=== PATIENT | male | born 1950 ===

== ENCOUNTER 2022-11-13 10:19 | Day surgery (SDC) | payer MEDICARE ==
[2022-11-12 13:34] VITALS: BMI 27.9
[2022-11-13] MEDS ORDERED: Vancomycin 1 GM VIAL ONE (10:35)
[2022-11-13] MEDS ORDERED: Thrombin 5000 UNITS/5 ML VIAL ONE (10:35)
[2022-11-13] MEDS ORDERED: CEFAZOLIN 2 GM VIAL ONE ×2 (11:22→11:58)
[2022-11-13] MEDS ORDERED: Sodium Chloride 0.9% 0 ML ONE (11:22)
[2022-11-13] MEDS ORDERED: Sodium Chloride 0.9% 100 ML ONE (11:58)
[2022-11-13] MEDS ORDERED: fentaNYL PF 100 MCG/2 ML SYRINGE ONE (12:31)
[2022-11-13] MEDS ORDERED: fentaNYL 50 mcg/mL 1 mL Vial ONE ×2 (12:31→16:40)
[2022-11-13] MEDS ORDERED: Ketamine 50 MG/ML (10ML VIAL) ONE (12:31)
[2022-11-13] MEDS ORDERED: Vasopressin 20 UNITS/ML VIAL ONE (12:32)
[2022-11-13] MEDS ORDERED: Dexamethasone 20 MG/5 ML VIAL ONE (12:44)
[2022-11-13] MEDS ORDERED: Glycopyrrolate 0.2 MG/ML 5 ML SYRINGE ONE (12:44)
[2022-11-13] MEDS ORDERED: Succinylcholine 200 MG/10 ml SYRINGE FS ONE (12:44)
[2022-11-13] MEDS ORDERED: Rocuronium Bromide 10 MG/ML (10ML VIAL) ONE (12:44)
[2022-11-13] MEDS ORDERED: PROPOFOL 200 MG/20 ML VIAL ONE (12:44)
[2022-11-13] MEDS ORDERED: NEOSTIGMINE 3 MG/3 ML SYR 3 MG/3 ML SYRINGE ONE (12:44)
[2022-11-13] MEDS ORDERED: Lidocaine 1% PF 5 ML VIAL ONE (12:44)
[2022-11-13] MEDS ORDERED: ePHEDrine Sulfate 50 MG/10 ML VIAL ONE (12:44)
[2022-11-13] MEDS ORDERED: Ondansetron PF 4 MG/2 ML Vial ONE ×2 (12:44→17:19)
[2022-11-13] MEDS ORDERED: HYDROcodone/Acetaminophen 5/325 mg Tablet ONE (17:03)
== END 2022-11-13 18:03 | disposition home or self-care (01) ==
LOC: SDC 10:19
PROVIDERS: ATTEND Neurological Surgery
PROC: 0RG20A0 Fusion of 2 or more Cervical Vertebral Joints with Interbody Fusion Device, Anterior Approach, Anterior Column, Open Approach (ICD-10-PCS; principal; 2022-11-13)
DX: M50.11 Cervical disc disorder with radiculopathy, high cervical region (principal); M48.02 Spinal stenosis, cervical region; M50.121 Cervical disc disorder at C4-C5 level with radiculopathy; M54.50 Low back pain, unspecified; D64.9 Anemia, unspecified; M19.90 Unspecified osteoarthritis, unspecified site; I10 Essential (primary) hypertension; Z96.653 Presence of artificial knee joint, bilateral; Z98.890 Other specified postprocedural states; Z79.899 Other long term (current) drug therapy
CPT/HCPCS: 20930; 20936; 22551; 22552; 22845; 22853 ×2; C1713 ×5; J3010; J1100; J2405; J2704; J3370; J3490